=== PATIENT | male | born 1960 | race Caucasian/White ===

== ENCOUNTER 2022-11-29 14:24 | Outpatient (CLI) | payer OTHER, SELFPAY ==
--- NOTE | ~2022-11-29 | MR_ITS ---
EXAMINATION: MR knee LT wo con DATE: 11/29/2022 15:15 INDICATION: Left knee osteoarthritis with several months of knee pain and intermittent swelling TECHNIQUE: Magnetic resonance imaging (MRI) of the left knee was performed without intravenous contra st. Sequences included coronal PD-weighted FSE, coronal PD-weighted FS FSE, sagittal T2-weighted FSE , sagittal PD-weighted FS FSE and axial PD weighted fat saturated FSE. COMPARISON: None. FINDINGS: Medial compartment: Medial meniscus is normal. Articular cartilage is normal. Lateral compartment: Complex tear of the lateral meniscus with a longitudinal tear plane which extends posteriorly in the posterior horn with a more vertical configuration extending to the inferior articular surface and the peripheral third transitioning to a more horizontal configuration extending to the free edge at the junction of the posterior horn and body and the cephalad articular surface in the body and anterior h orn. There is additional vertical tear plane extending to the subarticular surface and the peripheral third at the junction of the body and posterior horn. Moderate-sized multilobulated or meniscal cyst extending for approximately 4 cm in length along the periphery of the anterior body and anterior hor n and measuring up to 1.5 x 1.2 cm in maximal orthogonal dimensions on the anterior margin of the ant erior horn. Articular cartilage is normal. Patellofemoral compartment: There is a horizontal band of partial-thickness chondral fissuring extending across the caudal third of the patella which in places appears to involve at least 50% of the cartilage thickness. There is a lso a nondisplaced chondral flap tear with thin linear fluid signal extending 7 mm vertically from th e inferior margin of the medial facet at the level of the mid thickness of the cartilage. No degenera tive subchondral changes. Trochlear cartilage is normal. Ligaments and tendons: Anterior and posterior cruciate ligaments are normal. The medial collateral ligament and fibular dl ateral ligament complex are normal. The extensor mechanism is normal. The visualized medial and later al hamstring tendons as well as the iliotibial band are normal. Fluid: Small left knee joint effusion. No loose osteochondral bodies identified. Osseous/other: Likely reactive mild marrow edema underlying the anterior root of the lateral meniscus. No fracture o r pathologic marrow replacing process. IMPRESSION: 1. Complex tear of the lateral meniscus with moderate-sized perimeniscal cyst along the periphery of the anterior body and anterior horn. 2. 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 3. Small left knee joint effusion. Reviewed, dictated and finalized at location A. IMPRESSION: 1. Complex tear of the lateral meniscus with moderate-sized perimeniscal cyst a long the periphery of the anterior body and anterior horn. 2. 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 3. Small left knee joint effusion.
== END 2022-11-29 14:25 | disposition home or self-care (01) ==
PROVIDERS: PCP Internal Medicine; Visit Provider Orthopaedic Surgery
DX: M17.12 Unilateral primary osteoarthritis, left knee (principal)
CPT/HCPCS: 73721